=== PATIENT | female | born 1965 | race Two or more races ===

== ENCOUNTER 2024-07-20 10:37 | Day surgery (SDC) | payer MEDICAID ==
[2024-07-18 09:44] LABS: Basophils # (auto) 0.1 10 ^3/uL (0-0.2); Basophils % (auto) 1.1 % (0.0-2.0); Eosinophils # (auto) 0.1 10 ^3/uL (0-0.8); Eosinophils % (auto) 2.5 % (0.0-7.0); Hematocrit 43.8 % (36.0-46.0); Hemoglobin 15.2 g/dL (12.2-16.2); Lymphocytes # (auto) 1.6 10 ^3/uL (0.4-5.4); Lymphocytes % (auto) 33.9 % (10.0-50.0); Mean Corpuscular Hemoglobin 29.5 pg (28.0-32.0); Mean Corpuscular Hgb Conc. 34.7 g/dL (32.0-36.0); Monocytes # (auto) 0.3 10 ^3/uL (0-1.3); Monocytes % (auto) 7.2 % (0.0-12.0); Neutrophils # (auto) 2.7 10 ^3/uL (1.6-8.6); Neutrophils % (auto) 55.3 % (37.0-80.0); Nucleated Red Blood Cells % 0.1 %; Platelet Count (auto) 294 10^3/uL (140-450); Red Blood Cells 5.15 10^6/uL (4.0-5.20); Red Cell Distribution Width 12.7 % (11.8-14.3); White Blood Cell 4.9 10^3/uL (4.4-10.8)
[2024-07-18 09:55] LABS: Partial Thromboplastin Time 29.9 SEC (24.5-34.5); Prothrombin Time 10.6 sec (9.3-11.8)
[2024-07-18 10:10] LABS: Alanine Aminotransferase 19 U/L (7-40); Albumin 4.8 g/dL (3.2-4.8); Alkaline Phosphatase 104 U/L (46-116); Anion Gap 6 (5-15); Aspartate Aminotransferase 14 U/L (13-40); BUN/Creatinine Ratio 14.5 (10.0-20.0); Bilirubin, Total 0.6 mg/dL (0.2-1.0); Blood Urea Nitrogen 12 mg/dL (9-23); Calcium 9.8 mg/dL (8.7-10.4); Carbon Dioxide 28 mmol/L (20-31); Chloride 104 mmol/L (98-107); Potassium 4.2 mmol/L (3.5-5.1); Sodium 138 mmol/L (136-145); Total Protein 7.8 g/dL (5.7-8.2)
[2024-07-18 10:26] LABS: Glucose 125 mg/dL (74-106)
[~2024-07-20] VITALS: Ht 160 cm; Wt 92.1 kg
[~2024-07-20 10:37] MED LIST: CYCL-837 PO; IBUP-1456 PO; METF-489 PO
[2024-07-20] MEDS ORDERED: SODIUM CHLORIDE LOCK 10 ML ONE (12:49)
[2024-07-20] MEDS ORDERED: MIDAZOLAM HCL 2MG/2ML 2ml VIAL (1mg/ml) ONE (12:50)
[2024-07-20] MEDS: fentaNYL CITRATE 100 MCG/2 ML VL ONE (13:30)
[2024-07-20] MEDS: MIDAZOLAM HCL 5 MG/ML-1ML VIAL ONE (13:30)
--- NOTE | 2024-07-20 13:48 | DVHNC2 ---
Procedure - DATE OF PROCEDURE: July 20, 2024 SURGEON: ARSLAN RODRIGUEZ MD REFERRING PROVIDER: [facility] PROCEDURE PERFORMED: 1. Colonoscopy with moderate sedation PRE-PROCEDURE DIAGNOSIS: 1. Colon cancer screening 2. Family history of colon cancer POSTPROCEDURE DIAGNOSIS: 1. Internal and external hemorrhoids otherwise normal colonoscopy INDICATIONS FOR PROCEDURE: The patient is a 59-year-old female presents for outpatient colonoscopy for a family history of colon cancer. Her last colonoscopy was 10 years ago. MEDICATIONS USED: 5 mg of Versed IV and 100 mcg IV given in incremental doses DETAILS OF THE PROCEDURE: Informed consent was obtained after risks, benefits, and alternatives, were discussed at length with the patient. The patient gave consent to the procedure as well as the medication used for sedation. The patient was placed in the left lateral decubitus position. Digital rectal exam showed internal hemorrhoids and external hemorrhoids. An Olympus variable torsion pediatric colonoscope was inserted into the rectum and advanced to the cecum. The cecum was identified by the ileocecal valve and the appendiceal orifice. The scope was then withdrawn. The prep was excellent with only small amounts of liquid stool. There were no large polyps,, masses, strictures or or arteriovenous malformations seen. Retroflexion showed internal hemorrhoids. More than 6 minutes of withdrawal time was noted. The patient tolerated the procedure well. [place] BOWEL PREP SCORE: 9 COLONOSCOPY START TIME: 1336 CECUM TIME: 1338 COLONOSCOPY END TIME:1344 IMPRESSION: 1. Internal and external hemorrhoids otherwise normal colonoscopy RECOMMENDATIONS: 1. Follow up with primary care physician 2. High-fiber diet 3. Repeat colonoscopy in five years given family history unless otherwise indicated I WOULD LIKE TO THANK [facility] FOR THIS REFERRAL ARSLAN RODRIGUEZ MD Jul 20, 2024 13:48
[2024-07-20 13:55] VITALS: PULSE 64; RESP 12; TEMP 98.6; O2SAT 98
[2024-07-20 14:25] VITALS: BP 130/93; PULSE 64; RESP 15; O2SAT 94
== END 2024-07-20 14:40 | disposition home or self-care (01) ==
LOC: GI 10:37
PROVIDERS: ATTEND Specialist
DX: Z12.11 Encounter for screening for malignant neoplasm of colon (principal); K64.4 Residual hemorrhoidal skin tags; K64.8 Other hemorrhoids; Z80.0 Family history of malignant neoplasm of digestive organs; J45.909 Unspecified asthma, uncomplicated
CPT/HCPCS: 36415; 45378; 80053; 82962; 85025; 85610; 85730; J2250; J3010; 99152